=== PATIENT | male | born 1990 | race Caucasian/White ===

== ENCOUNTER 2016-12-13 17:30 | Emergency (ER) | payer OTHER ==
[2016-12-13 17:36] VITALS: BP 132/92; PULSE 83; RESP 16; TEMP 98.1; O2SAT 97
--- NOTE | 2016-12-13 17:50 | EDPHY ---
H & P Time Seen by Provider: 12/13/16 17:40 HPI/ROS: CHIEF COMPLAINT: Left shoulder dislocation HISTORY OF PRESENT ILLNESS: Patient had multiple previous right shoulder dislocations, he says more than 3 but less than 10. He has never seen at physician for this and he says usually it "goes back in" but today did not. He was stretching and abducted his right arm and felt it dislocate in his shoulder. REVIEW OF SYSTEMS: No weakness or numbness in the right arm or hand. PAST MEDICAL HISTORY: Previous shoulder dislocations Social history: Lives in [place] General Appearance: Alert and conversant, cooperative. Patient has pain with rotation or abduction of the right shoulder. Normal right elbow and hand and wrist. There is an AC step-off on the right. Normal right radial pulse. Emergency Department course/MDM: Procedure: Dislocation reduction. Indication: Dislocation of the left glenohumeral joint. Risks, benefits, alternatives discussed with the patient including but not limited to fracture, nerve or blood vessel injury, and consent obtained. A timeout was completed. The shoulder was reduced in the usual fashion, scapular manipulation, without complications. Post reduction the patient's neurovascular exam is normal. Post reduction x-ray demonstrates reduction of the joint to the anatomic position. The procedure was performed by myself. Patient warned he needs mandatory orthopedic follow-up , or he has high risk of recurrence. Smoking Status: Never smoked Constitutional: Initial Vital Signs Temperature (C) 36.7 C 12/13/16 17:33 Heart Rate 83 12/13/16 17:33 Respiratory Rate 16 12/13/16 17:33 Blood Pressure 132/92 H 12/13/16 17:33 O2 Sat (%) 97 12/13/16 17:33 O2 Delivery Mode Room Air Allergies/Adverse Reactions: No Known Allergies Allergy (Unverified 05/03/16 20:35) Home Medications: Medication Instructions Recorded NK [No Known Home Meds] 12/13/16 MDM/Departure - MDM Imaging Results: Postreduction shoulder x-ray normal alignment. Imaging: I viewed and interpreted images myself - Depart Disposition: Home, Routine, Self-Care Clinical Impression: Shoulder dislocation, recurrent Qualifiers: Laterality: left Qualified Code(s): M24.412 - Recurrent dislocation, left shoulder Condition: Good Instructions: Shoulder Dislocation (ED) Additional Instructions: Wear sling for the next 48 hours. Limited activity until approved by follow-up orthopedic surgeon. Call for appointment within the next week. Referrals: NONE *PRIMARY CARE P,. [Primary Care Provider] - As per Instructions Cecelia Benítez MD [Medical Doctor] - As per Instructions
== END 2016-12-13 18:08 | disposition home or self-care (01) ==
PROC: 0RSJXZZ Reposition Right Shoulder Joint, External Approach (ICD-10-PCS; principal; 2016-12-13)
DX: M24.411 Recurrent dislocation, right shoulder (principal)